=== PATIENT | female | born 1950 | race Caucasian/White ===

== ENCOUNTER → 2017-07-20 | Day surgery (SDC) | payer MEDICARE, BC ==
[~2017-07-20] MED LIST: Lactated Ringers 1,000 ML IV SCH; Propofol 200 MG/20 ML SDV IV ONE
--- NOTE | 2017-07-20 10:50 | OR ---
DATE OF OPERATION: 07/20/2017 PREOPERATIVE DIAGNOSIS: FOLLOW UP POLYPS. POSTOPERATIVE DIAGNOSIS: FOLLOW UP POLYPS. SURGEON: Adriel Liz MD PROCEDURE PERFORMED: Full-length colonoscopy. 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 COMPLICATIONS: None. SPECIMEN: None. FINDINGS: 1. Full-length colonoscopy. 2. [id number]-[id number]-fgyrkeup sigmoid diverticulosis. RECOMMENDATIONS: Follow up colonoscopy in 10 years. INDICATIONS: The patient had a prior colonoscopy 5 years ago, where she had a few small polyps removed. She was told of a 5-year followup. DESCRIPTION OF PROCEDURE: The patient was prepped and draped, placed in the left lateral decubitus position. A lubricated Olympus colonoscope was inserted and easily advanced to the cecum. Direct visualization of the ileocecal valve and appendiceal orifice was accomplished. Bowel prep was adequate. Upon withdrawal of the scope, the cecum and transverse colon were completely benign. No signs of lesions in the descending colon. The patient has had scattered diverticula through most of the sigmoid and the rectosigmoid junction, mild-to- moderate in severity. No inflammatory changes seen throughout the entire left colon, I could find no signs of any polyps, mass, ulceration, or bleeding sites. No vascular abnormalities or signs of colitis. The rectal vault was benign. Retroflexion showed no anal lesions or other than prominent vascular tissue. Air was suctioned. Scope was removed without complication. DYLON/LOREN /[id number]
== END ==
LOC: CC.SDS 08:18
PROVIDERS: ATTEND Family Medicine
DX: Z12.11 Encounter for screening for malignant neoplasm of colon (principal); K57.30 Diverticulosis of large intestine without perforation or abscess without bleeding; K58.9 Irritable bowel syndrome, unspecified; M19.90 Unspecified osteoarthritis, unspecified site; E78.5 Hyperlipidemia, unspecified; J20.9 Acute bronchitis, unspecified; B37.2 Candidiasis of skin and nail; Z79.82 Long term (current) use of aspirin; Z79.899 Other long term (current) drug therapy; Z90.710 Acquired absence of both cervix and uterus; Z98.49 Cataract extraction status, unspecified eye; Z98.890 Other specified postprocedural states; Z86.010 Personal history of colon polyps
CPT/HCPCS: G0121; J2704; J7120; 00811